=== PATIENT | female | born 1990 | race African-American/Black ===

== ENCOUNTER 2018-03-07 17:16 | Emergency (ER) | payer OTHER ==
[~2018-03-07] VITALS: Ht 175.3 cm; Wt 63.5 kg
--- NOTE | ~2018-03-07 | EKG ---
[address] [place] [address] ELECTROCARDIOGRAM REPORT Name: ISAI IRELAND [id number] Admission: 03/07/18 Attend Phys: Discharge: 03/07/18 Date of : 89 Report #: [id number] THIS REPORT FOR: //name// [facility] ED Test Date: 2018-03-07 Test Time: 17:42:15 Pat Name: ISAI IRELAND Department: Room: Gender: F [employer]ist: : [id number] Requested By: Brooke Mendoza Order Number: [id number] MD: Alexey Choudhury Measurements Intervals [place] Rate: 79 P: 58 [place]: 158 QRS: 21 QRSD: 77 T: 36 QT: 408 QTc: 468 Interpretive Statements Sinus rhythm Nonspecific T wave abnormality No previous ECG available for comparison Electronically Signed On 03-10-2018 7:57:25 CDT by Alexey Choudhury [email or web address] <ELECTRONICALLY SIGNED> By: Alexey Choudhury MD, [facility] 03/10/18 [id number] Alexey Choudhury MD, FACC /EPI
[~2018-03-07 17:16] MED LIST: AZITHROMYCIN 2250 MG PO; NOHOMEMEDICATIONS; NORCO 5-325 TA1 EACH PO; PREDNISONE 20 M20 MG PO; VENTOLIN17 GM INH
[2018-03-07 18:31] LABS: ABSOLUTE NEUTROPHILS 6.2 thou/uL (1.4-8.2); BASOPHILS 0.5 % (0.0-2.0); EOSINOPHILS 1.6 % (0.0-3.0); HEMATOCRIT 40.5 % (37.0-47.0); HEMOGLOBIN 13.3 gm/dL (12.0-15.0); LYMPHOCYTES 22.2 % (24.0-44.0); MCHC 32.9 g/dL (28.0-37.0); MONOCYTES 8.2 % (1.0-8.0); PLATELET COUNT 304 thou/uL (150-400); POLYS 67.5 % (36.0-66.0); RBC 4.61 mil/uL (4.20-5.00); RDW 13.7 % (10.5-14.5); WBC 9.2 thou/uL (4.0-11.0)
[2018-03-07 18:35] LABS: ANION GAP 8 mmol/L (7-16); BUN 13 mg/dL (7-18); CALCIUM 8.9 mg/dL (8.5-10.1); CHLORIDE 103 mmol/L (98-107); CO2 27 mmol/L (21-32); GLUCOSE 94 mg/dL (74-106); POTASSIUM 4.6 mmol/L (3.5-5.1); SODIUM 138 mmol/L (136-145)
[2018-03-07 18:41] LABS: ALBUMIN 3.8 g/dL (3.4-5.0); DIRECT BILIRUBIN < 0.1 mg/dL (<0.1-0.3); LIPASE 198 U/L (73-393); SGOT 22 U/L (15-37); SGPT 22 U/L (30-65); TOTAL BILIRUBIN 0.2 mg/dL (<0.1-1.0); TOTAL PROTEIN 8.2 g/dL (6.4-8.2)
[2018-03-07] MEDS ORDERED: ZOFRAN ODT4 MG PO (19:50)
[2018-03-07] MEDS ORDERED: PEPCID40 MG PO (19:50)
[2018-03-07 20:05] VITALS: BP 136/82
== END 2018-03-07 20:05 | disposition home or self-care (01) ==
LOC: ER 17:16
PROVIDERS: Emergency Medicine
DX: K92.0 Hematemesis (principal)